=== PATIENT | female | born 1980 | race Caucasian/White ===

== ENCOUNTER 2018-10-27 07:42 | Emergency (ER) | payer MEDICAID, SELFPAY ==
[2018-09-13 09:50] VITALS: BMI 22.3
[2018-10-27 07:43] VITALS: BP 117/70; PULSE 86; RESP 14; TEMP 37.1; O2SAT 100; BMI 23.1
--- NOTE | 2018-10-27 08:14 | ED.DCSUM_ITS ---
- ER Visit Summary Date of Service: 10/27/18 Chief Complaint: Fatigue History of Present Illness: The patient is a 38 F reports a one-week history of generalized weakness and fatigue. He states symptoms been worse over the past 2 days. Her son had positive mono titers and patient would like to be checked for mono. She also states that she was seen by Dr. Paige a month ago to establish care and never had a blood work drawn that was requested. She is wondering if she can have that done today as well. Patient denies fever or chills. She states she has minimal body aches. No nausea, vomiting, or diarrhea. Physical Examination: Vital signs unremarkable. Patient sitting upright in bed no acute distress. Head and neck examination was TMs to be clear bilaterally. Posterior pharynx exam is normal. Heart is regular rate and rhythm. Lung sounds are clear. Abdomen is soft and nontender. Neuro exam reveals no focal deficits. Test Results: CBC and chemistry studies are unremarkable. Urinalysis normal. test negative. Monospot and TSH are normal. Emergency Department Course and Treatment: Patient was given IV fluids. Test results were discussed with her. Patient's Monospot and eosinophil count were both unremarkable. My suspicion for acute mono is very low, however she may have a another virus giving her the generalized fatigue that she is feeling. She understands this. Treatment Plan: [] Disposition: Discharge Impression: Fatigue This note was generated with Smaile[employer] dictation software. It may contain incorrect words, spelling, and punctuation that were not noted in review of the chart prior to signing ED Disposition - Plan for ED Patient: Disposition: Home or Assisted Living Instructions: ED Weakness [facility] [place] Referrals: Rosetta Rebollar MD [Primary Care Provider] - 1 Week if not improving
[2018-10-27] MEDS: 0.9% Normal Saline 1,000 ML 150 ML IV (08:17)
[2018-10-27 08:24] LABS: Bacteria 0 SEEN /hpf (None Seen); Mucous, Urine 0 SEEN /hpf (<or=2+); Red Blood Cells-Urine 0 SEEN /hpf (0-5)
[2018-10-27 08:33] LABS: Absolute Lymphocyte Count 1.46 X10^3/ul (0.83-4.51); Absolute Neutrophil Count 6.8 X10^3/uL (2.0-7.7); Basophil# 0.03 X10^3/uL; Basophil% 0.3 % (0-1); Eosinophil# 0.17 X10^3/uL; Eosinophils% 1.9 % (0-5); Hematocrit 38.2 % (37-47); Lymphocyte # 1.46 X10^3/ul (4.0); Lymphocyte % 16.4 % (19-41); Mean Corpuscular Hgb 30.6 pg (27.0-32.0); Mean Corpuscular Volume 89.9 fL (81-99); Mean Platelet Vol. 9.5 fl (6.2-12.0); Monocyte# 0.38 X10^3/uL; Monocyte% 4.3 % (0-10); Neutrophil # 6.84 X10^3/uL (2.7-7.7); Platelet Count 347 K/mm3 (150-450); RBC Distribution Width CV 14.2 % (11.6-14.6); RBC Distribution Width SD 46.3 fl (35.1-43.9); Red Blood Count 4.25 M/mm3 (4.2-5.4); White Blood Count 8.9 K/mm3 (4.4-11.0)
[2018-10-27 08:40] LABS: POSITIVE COUNT NO; POSITIVE DIFFERENTIAL NO; POSITIVE MORPHOLOGY NO
[2018-10-27 08:41] LABS: Color, Urine Yellow (Yellow); Glucose, Dipstick Normal (Normal); Ketone-Dipstick Negative (Negative); Leukocyte Esterase-Dipstick Negative /ul (Negative); Nitrite-Dipstick Negative (Negative); Occult Blood-Urine Negative /ul (Negative); Protein-Dipstick Negative (Negative); Urine Bilirubin Dipstick Negative (Negative); Urine Clarity Clear (Clear); Urine Urobilinogen Normal (Normal)
[2018-10-27 08:42] LABS: Internal QC Validated? YES +Cl - CLEAR BKGD; Pregnancy, Serum, hCG Quali. NEGATIVE Negative
[2018-10-27 08:44] LABS: White Blood Cells 0-5 SEEN /hpf (0-5)
[2018-10-27 08:45] LABS: Squamous Epithelial Cells - UA 0-5 SEEN /hpf (5-10)
[2018-10-27 08:45] LABS: Internal QC Validated? YES +Cl - CLEAR BKGD; Monotest Negative (Negative)
[2018-10-27 08:54] LABS: Anion Gap 5 (5-15); BUN 8 mg/dL (7-18); BUN/Creat Ratio 11.8 RATIO (10-20); Calcium,Total 9.2 mg/dL (8.5-10.1); Chloride 108 mmol/L (98-107); Creatinine, Serum 0.68 mg/dL (0.55-1.02); EST Glomerular Filtration Rate 103 mL/min (>60); Est Glom Filt Rate - Afr Amer 124 mL/min (>60); Estimated Creatinine Clearance 95.91 ml/min; Glucose 89 mg/dL (74-106); Potassium 3.8 mmol/L (3.5-5.1); Sodium Level 142 mmol/L (136-145); Thyroid Stim Hormone (TSH) 0.86 uIU/mL (0.358-3.74)
== END 2018-10-27 09:09 | disposition home or self-care (01) ==
PROVIDERS: Emergency Provider Emergency Medicine; Family Provider Internal Medicine; PCP Internal Medicine
DX: R53.83 Other fatigue (principal); Z72.0 Tobacco use
CPT/HCPCS: 80048; 81001; 84443; 84703; 85025; 86308; 96360; 99283; J7030; A4216

== ENCOUNTER → 2018-11-22 | Outpatient (CLI) | payer MEDICAID, SELFPAY ==
[2018-11-20 08:17] VITALS: BMI 23.1
[2018-11-22 12:51] LABS: Absolute Lymphocyte Count 1.74 X10^3/ul (0.83-4.51); Absolute Neutrophil Count 5.8 X10^3/uL (2.0-7.7); Basophil# 0.03 X10^3/uL; Basophil% 0.4 % (0-1); Eosinophil# 0.16 X10^3/uL; Hematocrit 37.8 % (37-47); Hemoglobin 12.3 g/dl (12.0-15.0); Lymphocyte # 1.74 X10^3/ul (4.0); Lymphocyte % 21.4 % (19-41); Mean Corp Hgb Conc 32.5 g/gl (32-36); Mean Corpuscular Hgb 29.9 pg (27.0-32.0); Mean Corpuscular Volume 91.7 fL (81-99); Mean Platelet Vol. 9.7 fl (6.2-12.0); Monocyte# 0.43 X10^3/uL; Monocyte% 5.3 % (0-10); Neutrophil # 5.75 X10^3/uL (2.7-7.7); Neutrophil % 70.5 % (47-70); Platelet Count 413 K/mm3 (150-450); RBC Distribution Width CV 13.9 % (11.6-14.6); RBC Distribution Width SD 45.6 fl (35.1-43.9); Red Blood Count 4.12 M/mm3 (4.2-5.4); White Blood Count 8.1 K/mm3 (4.4-11.0)
[2018-11-22 12:54] LABS: POSITIVE COUNT NO; POSITIVE DIFFERENTIAL NO; POSITIVE MORPHOLOGY NO
[2018-11-22 13:10] LABS: Vitamin D,25 Hydroxy 21.8 ng/mL (29.95-100.01)
[2018-11-22 13:14] LABS: Anion Gap 7 (5-15); BUN 17 mg/dL (7-18); BUN/Creat Ratio 24.7 RATIO (10-20); Calcium,Total 9.2 mg/dL (8.5-10.1); Chloride 105 mmol/L (98-107); Cholesterol 168 mg/dL (200); Creatinine, Serum 0.69 mg/dL (0.55-1.02); EST Glomerular Filtration Rate 101 mL/min (>60); Est Glom Filt Rate - Afr Amer 122 mL/min (>60); Glucose 106 mg/dL (74-106); High Density Lipoprotein 79 mg/dL; Potassium 3.9 mmol/L (3.5-5.1); Sodium Level 139 mmol/L (136-145); Triglycerides 95 mg/dL; Very Low Density Lipoprotein 19 mg/dL (5-40)
== END | disposition home or self-care (01) ==
LOC: BIMLAB 10:01
PROVIDERS: Family Provider Internal Medicine; PCP Internal Medicine; Visit Provider Nurse Practitioner Family
DX: R00.2 Palpitations (principal); E55.9 Vitamin D deficiency, unspecified; Z72.0 Tobacco use
CPT/HCPCS: 36415; 80048; 80061; 82306; 85025

== ENCOUNTER 2021-12-23 21:09 | Emergency (ER) | payer MEDICAID, SELFPAY ==
[2021-12-23 21:10] VITALS: BP 126/80; PULSE 81; RESP 14; TEMP 36.6; O2SAT 100; BMI 25.9
--- NOTE | 2021-12-23 21:27 | EKG12_ITS ---
Test Reason : DYSRHYTHMIA Blood Pressure : / mmHG Vent. Rate : 073 BPM Atrial Rate : 073 BPM P-R Int : 156 ms QRS Dur : 082 ms QT Int : 394 ms P-R-T Axes : 077 081 058 degrees QTc Int : 434 ms Normal sinus rhythm Low voltage QRS Borderline ECG Confirmed by EMILY PANDA, ELIE ([id number]), advertising editor CLEMENCIA DEE ([id number]) on 12/27/2021 8:09:34 AM Referred By: WILLIAM Confirmed By:ELIE DIAZ MD
--- NOTE | 2021-12-23 21:27 | RAD_ITS ---
STUDY: X-RAY CHEST REASON FOR EXAM: Female, 41 years old. chest pain TECHNIQUE: Single AP portable upright view of the chest. 9:39 PM. COMPARISON: Previous chest radiograph of 05/18/2017. FINDINGS: The lungs are clear and expanded. There is no demonstrated pleural abnormality. Normal size heart. Normal mediastinum and leeann. Normal visualized pulmonary arteries. Normal visualized aortic arch and descending thoracic aorta. Normal visualized thoracic spine. Normal visualized ribs, clavicles, and shoulders. There is no demonstrated abnormality of the visualized soft tissue structures of the upper abdomen. RAD/Chest 1 View (Portable) IMPRESSION: No significant interval change. No acute cardiopulmonary disease process identified. Electronically Signed: Luis Rasheed MD at 22:02 EDT ,
--- NOTE | 2021-12-23 21:34 | ED.VIS.DYS ---
HPI History of Present Illness Chief Complaint: Shortness of Breath Narrative Narrative: Patient presents with left arm pain and she states that it is difficult to breathe out of her left side since 10:00 this morning. She denies any fevers or chills. No cough. No true chest pain. She denies any DVT or PE risk factors. She is concerned because she is a smoker. She denies any family history of early myocardial infarction. She does not have any leg swelling. No nausea, vomiting, or diaphoresis. She states that there is a deep ache in her left arm near her elbow. No injury. She is left-hand dominant. She does not take oral contraceptives. [facility] Medical History Drug abuse Lab test negative for COVID-19 virus Palpitations Home Medications vitamin B complex 1 ea PO DAILY 10/27/18 [History Last Taken Unknown] Allergy/AdvReac Type Severity Reaction Status Date / Time No Known Allergies Allergy Verified 12/23/21 21:10 Family History Mother Hypertension Arthritis Seizures Sleep apnea Bipolar 1 disorder Social History Smoking Status: Current every day smoker tobacco type: cigarettes Tobacco: How many years used: 15 alcohol intake: never substance use type: former substance user Date of last use: 07/02/2012 and opiates what type of physical activity do you participate in: none ROS ROS ED ROS Narrative Constitutional: No fever, no chills. HEENT: No sore throat. No neck pain. No loss of vision. No rhinorrhea. Cardiovascular: No chest pain. No palpitations. No pedal edema. Respiratory: No cough, intermittent shortness of breath out of left side. Abdominal: No abdominal pain. No nausea. No vomiting. Genitourinary: No dysuria. No hematuria. Musculoskeletal: Left arm pain/deep ache no arthralgias. Neurologic: No headaches. No dizziness. No lightheadedness. Skin: No rash. No change in color. Psychiatric: No depression. No anxiety. EXAM Physical Exam Narrative Exam Narrative: Afebrile. Vital signs noted. HEENT: Normocephalic. Atraumatic. PERRL, EOMI. Neck soft and supple. No point tenderness or step off. Cardiovascular: Regular rate and rhythm. No murmurs, rubs, or gallops appreciated. Respiratory: No tachypnea. Lungs clear to auscultation bilaterally. Gastrointestinal: Abdomen soft, nontender, with normoactive bowel sounds. No rebound or guarding. Neurological: Awake. Alert. Nonfocal, nonlateralizing. Skin: No rash. Normal color. No pallor. Musculoskeletal: No pedal edema. Full range of motion extremities. No noted swelling of left elbow or tenderness to palpation. Const Vital Signs: 12/23/21 21:10 12/23/21 21:41 12/23/21 21:50 Temperature 98 F Temperature Source Temporal Pulse Rate 81 Respiratory Rate 14 Respiratory Effort Normal Respiratory Depth Normal Blood Pressure 126/80 H Blood Pressure Mean 95 Pulse Ox 100 99 Oxygen Delivery Method Room Air Room Air Room Air 12/23/21 21:52 Temperature Temperature Source Pulse Rate 73 Respiratory Rate 16 Respiratory Effort Respiratory Depth Blood Pressure 105/81 H Blood Pressure Mean 89 Pulse Ox 98 Oxygen Delivery Method Room Air MDM MDM MDM Narrative Medical decision making narrative: Patient not having chest pain, she is concerned more about arm pain and the shortness of breath that she has been having. EKG demonstrates normal sinus rhythm at 73 bpm without ectopy or acute ST changes. No STEMI. Chest x-ray interpreted by myself shows no acute process, no pneumothorax, no evidence of pneumonia. Her CBC is grossly normal except for hemoglobin stable at 10.7, platelet count normal at 327. Electrolyte panel shows chloride 109 with a normal BUN and normal creatinine of 0.92. Glucose 93. Her 0-hour troponin is less than 3, high-sensitivity. Her pain is been longer than 6 hours and according to the guidelines, if the 0-hour is longer than 3 hours, she does not need a delta troponin as it is less than 3. At this point in time, I feel she can be discharged safely home with follow-up. Return instructions to the emergency department were reviewed. Disposition is discharged home in stable condition. Lab Data Attestation: I reviewed the patient's lab results. Labs: Laboratory Results - last 24 hr 12/23/21 12/23/21 21:40 21:40 WBC 7.6 RBC 3.62 L Hgb 10.7 L Hct 32.1 L MCV 88.7 MCH 29.6 MCHC 33.3 RDW Std Deviation 46.0 H RDW Coeff of Hernán 14.2 Plt Count 327 MPV 9.6 Immature Gran % (Auto) 0.300 Neut % (Auto) 58.2 Lymph % (Auto) 30.8 [place] % (Auto) 7.6 Eos % (Auto) 2.6 Baso % (Auto) 0.5 Absolute Neuts (auto) 4.4 Absolute Lymphs (auto) 2.34 Nucleated RBC % 0 Sodium 140 Potassium 3.7 Chloride 109 H Carbon Dioxide 24.0 Anion Gap 7 BUN 17 Creatinine 0.92 Estim Creat Clear Calc 63.00 Est GFR (MDRD) Af Amer 86 Est GFR (MDRD) Non-Af 71 BUN/Creatinine Ratio 18.5 Glucose 93 Calcium 9.4 Troponin I High Sens < 3 L Radiography Diagnostic Testing: Clinical Impression(s) from Imaging Studies Chest X-Ray 12/23/21 21:27 IMPRESSION: No significant interval change. No acute cardiopulmonary disease process identified. Electronically Signed: Luis Rasheed MD at 22:02 EDT , Discharge Plan Triage Chief Complaint: Shortness of Breath ED Provider: Kaiden Garcia Dx/Rx/DC Orders Clinical Impression: Shortness of breath, Left arm pain Instructions: ED Dyspnea, ED Pain, Acute, Uncertain Cause Prescriptions: No Action vitamin B complex 1 EACH capsule 1 ea PO DAILY Primary Care Provider: Rosetta Rebollar Referrals: Rosetta Rebollar MD [Primary Care Provider] - 3-5 Days if not improving Disposition Disposition: Home, Self Care
[2021-12-23] MEDS: Aspirin 81 MG TAB.CHEW 324 MG PO (21:35)
[2021-12-23 21:41] VITALS: O2SAT 99
[2021-12-23 21:45] LABS: Absolute Lymphocyte Count 2.34 X10^3/uL (0.83-4.51); Absolute Neutrophil Count 4.4 X10^3/uL (2.0-7.7); Basophil# 0.04 X10^3/uL; Basophil% 0.5 % (0-1); Eosinophils% 2.6 % (0-5); Hematocrit 32.1 % (37-47); Hemoglobin 10.7 g/dL (12.0-15.0); Lymphocyte # 2.34 X10^3/ul (0.83-4.51); Lymphocyte % 30.8 % (19-41); Mean Corp Hgb Conc 33.3 g/dL (32-36); Mean Corpuscular Hgb 29.6 pg (27.0-32.0); Mean Corpuscular Volume 88.7 fL (81-99); Mean Platelet Vol. 9.6 fl (6.2-12.0); Monocyte# 0.58 X10^3/uL; Monocyte% 7.6 % (0-10); NRBC Flagged by Analyzer 0 % (0-5); Neutrophil # 4.42 X10^3/uL (2.7-7.7); Neutrophil % 58.2 % (47-70); Platelet Count 327 K/mm3 (150-450); RBC Distribution Width CV 14.2 % (11.6-14.6); Red Blood Count 3.62 M/mm3 (4.2-5.4); White Blood Count 7.6 K/mm3 (4.4-11.0)
[2021-12-23 21:50] VITALS: O2SAT 99
[2021-12-23 21:52] VITALS: BP 105/81; PULSE 73; RESP 16; O2SAT 98
[2021-12-23 22:24] LABS: Anion Gap 7 (5-15); BUN 17 mg/dL (7-18); BUN/Creat Ratio 18.5 RATIO (10-20); Calcium,Total 9.4 mg/dL (8.5-10.1); Chloride 109 mmol/L (98-107); Creatinine, Serum 0.92 mg/dL (0.55-1.02); EST Glomerular Filtration Rate 71 mL/min (>60); Est Glom Filt Rate - Afr Amer 86 mL/min (>60); Glucose 93 mg/dL (74-106); Potassium 3.7 mmol/L (3.5-5.1); Sodium Level 140 mmol/L (136-145); Troponin-I HS (w/2H Reflex) < 3 pg/mL (3.0-54.0)
[2021-12-23 22:44] VITALS: BP 104/66; PULSE 71; RESP 17; O2SAT 99
[2021-12-23 23:42] LABS: Reflex Troponin-HS? (from REC) Y
== END 2021-12-23 22:45 | disposition home or self-care (01) ==
PROVIDERS: Emergency Provider Emergency Medicine; PCP Internal Medicine; Visit Provider Emergency Medicine
DX: R06.02 Shortness of breath (principal); M79.602 Pain in left arm; F17.210 Nicotine dependence, cigarettes, uncomplicated
CPT/HCPCS: 71045; 80048; 84484; 85025; 93005; 99285; A4216

== ENCOUNTER → 2022-05-18 | Outpatient (CLI) | payer MEDICAID, SELFPAY ==
[2022-05-18 09:37] LABS: Bacteria 0 SEEN /hpf (None Seen); Mucous, Urine 0 SEEN /hpf (<or=2+); Red Blood Cells-Urine 0 SEEN /hpf (0-5); Squamous Epithelial Cells - UA 0 SEEN /hpf (5-10); White Blood Cells 0 SEEN /hpf (0-5)
[2022-05-18 12:20] LABS: Absolute Lymphocyte Count 1.41 X10^3/uL (0.83-4.51); Absolute Neutrophil Count 3.8 X10^3/uL (2.0-7.7); Basophil# 0.03 X10^3/uL; Basophil% 0.5 % (0-1); Eosinophil# 0.08 X10^3/uL; Eosinophils% 1.4 % (0-5); Hematocrit 36.9 % (37-47); Hemoglobin 11.8 g/dL (12.0-15.0); Lymphocyte # 1.41 X10^3/ul (0.83-4.51); Lymphocyte % 24.6 % (19-41); Mean Corpuscular Hgb 28.8 pg (27.0-32.0); Mean Platelet Vol. 10.1 fl (6.2-12.0); Monocyte# 0.38 X10^3/uL; Monocyte% 6.6 % (0-10); NRBC Flagged by Analyzer 0 % (0-5); Neutrophil # 3.82 X10^3/uL (2.7-7.7); Neutrophil % 66.6 % (47-70); Platelet Count 436 K/mm3 (150-450); RBC Distribution Width CV 14.4 % (11.6-14.6); RBC Distribution Width SD 47.5 fl (35.1-43.9); White Blood Count 5.7 K/mm3 (4.4-11.0)
[2022-05-18 12:22] LABS: Color, Urine Straw (Yellow); Glucose, Dipstick Normal (Normal); Ketone-Dipstick Negative (Negative); Leukocyte Esterase-Dipstick Negative /ul (Negative); Nitrite-Dipstick Negative (Negative); Occult Blood-Urine Negative /ul (Negative); Protein-Dipstick Negative (Negative); Specific Gravity, Urine 1.005 (1.002-1.030); Urine Bilirubin Dipstick Negative (Negative); Urine Clarity Clear (Clear); Urine Urobilinogen Normal (Normal)
[2022-05-18 12:48] LABS: Vitamin B12 > 2000 pg/mL (211-911); Vitamin D,25 Hydroxy 45.8 ng/mL
[2022-05-18 12:52] LABS: ALB/GLOB Ratio 1.1 RATIO (0.9-2.4); AST(SGOT) 10 U/L (15-37); Alanine Aminotransfer ALT/SGPT 19 U/L (13-56); Albumin, Serum 3.9 g/dL (3.2-5.0); Alkaline Phosphatase 46 U/L (45-117); Anion Gap 5 (5-15); BUN 9 mg/dL (7-18); BUN/Creat Ratio 12.6 RATIO (10-20); Chloride 107 mmol/L (98-107); Creatinine, Serum 0.71 mg/dL (0.55-1.02); EST Glomerular Filtration Rate 95 mL/min (>60); Est Glom Filt Rate - Afr Amer 115 mL/min (>60); Ferritin 12 ng/mL (8-252); Globulin 3.7 g/dL (2.2-4.2); Glucose 59 mg/dL (74-106); Iron 111 ug/dL (50-170); Iron Binding Capacity,Total 422 ug/dL (250-450); PERCENT IRON SATURATION 26.3 % (15.0-55.0); Potassium 3.6 mmol/L (3.5-5.1); Protein, Total 7.6 g/dL (6.4-8.2); Sodium Level 139 mmol/L (136-145); T4 Free Direct 0.92 ng/dL (0.76-1.46); Thyroid Stim Hormone (TSH) 1.42 uIU/mL (0.358-3.74)
== END | disposition home or self-care (01) ==
LOC: BIMLAB 09:36
PROVIDERS: PCP Internal Medicine; Referring Provider Physician Assistant; Visit Provider Physician Assistant
DX: R53.83 Other fatigue (principal); R06.09 Other forms of dyspnea; R00.2 Palpitations
CPT/HCPCS: 36415; 80053; 81001; 82306; 82607; 82728; 83540; 83550; 84439; 84443; 85025

== ENCOUNTER → 2022-08-15 | Outpatient (CLI) | payer MEDICAID, SELFPAY ==
[2022-08-19 11:46] LABS: HPV APTIMA, High Risk Negative (Negative)
== END | disposition home or self-care (01) ==
PROVIDERS: PCP Internal Medicine; Visit Provider Registered Nurse
DX: Z12.4 Encounter for screening for malignant neoplasm of cervix (principal)
CPT/HCPCS: 87624; 88175; G0145

== ENCOUNTER → 2022-09-06 | Outpatient (CLI) | payer MEDICAID, SELFPAY ==
--- NOTE | 2022-09-06 08:16 | BI_ITS ---
MAMMOGRAPHY - BILATERAL SCREENING REASON FOR EXAM: Female, 42 years old. Routine annual screening examination. PERTINENT HISTORY: Non-contributory. Remote right breast biopsy. TECHNIQUE: Digital bilateral breast angelica (3D mammographic acquisition) in the CC and MLO projections. 2-D mediolateral oblique (MLO) and craniocaudad (CC) views of both breasts were obtained. CAD: Full Field Digital Mammography with Computer Added Detection was performed. COMPARISON: None. Baseline examination. FINDINGS: Breast Composition: The breasts are extremely dense, which lowers the sensitivity of mammography. There are no dominant masses or suspicious calcifications. Small benign-appearing bilateral axillary. No other significant abnormalities are identified. BI/SCRN MAMM (CAD)W/ANGELICA BILAT IMPRESSION: Negative screening mammogram. Yearly followup mammogram recommended. (A) ASSESSMENT CATEGORY: BIRADS Category 2: Benign. A letter regarding these results will be sent to the patient by the facility within 30 days. Approximately 10% of breast cancers are not detected by mammography. A normal mammogram should not delay biopsy of a clinically suspicious abnormality. [id number] Electronically Signed: Evan Alex MD at 12:41 EST ,
== END | disposition home or self-care (01) ==
LOC: OPBI 08:15
PROVIDERS: PCP Internal Medicine; Visit Provider Registered Nurse
DX: Z12.31 Encounter for screening mammogram for malignant neoplasm of breast (principal)
CPT/HCPCS: 77063; 77067

== ENCOUNTER → 2023-03-01 | Outpatient (CLI) | payer MEDICAID, SELFPAY ==
--- NOTE | 2023-03-01 11:50 | RAD_ITS ---
STUDY: X-RAY - PELVIS AND RIGHT HIP REASON FOR EXAM: Female, 42 years old. Right Hip Pain TECHNIQUE: 3 views of the pelvis and hip. COMPARISON: None. FINDINGS: There is a non-specific bowel gas pattern. Normal visualized soft tissue structures. Normal bilateral iliac wings, sacroiliac joints and visualized sacrum. Normal bilateral superior and inferior pubic rami. Normal pubic symphysis. Normal bilateral ischial tuberosities. Normal visualized femoral head. Normal acetabulum. Normal hip joint. RAD/HIP, UNI W/ Pelvis 2-3 Views IMPRESSION: Normal x-ray examination of the pelvis and hip. Electronically Signed: Geremias Hinojosa MD at 16:31 EDT ,
== END | disposition home or self-care (01) ==
PROVIDERS: PCP Internal Medicine; Referring Provider Internal Medicine; Visit Provider Internal Medicine
DX: M25.551 Pain in right hip (principal)
CPT/HCPCS: 73502

== ENCOUNTER 2023-05-11 08:00 | Outpatient (RCR) | payer MEDICAID, SELFPAY ==
--- NOTE | 2023-04-17 09:20 | HP.PTEVAL_ITS ---
Patient's Visit Information Visit Information Visit Information: MARGOT MUHAMMAD is a 42 year old F referred to Physical Therapy by Dr. Austen Alamo MD with a diagnosis of R hip pain and snapping hip. Date of Evaluation: 04/17/23 Physical Therapist: FARZANA Asher Visit Plan Frequency: 2x /Week Duration: 2 Months Plan: 2X/ week for 8 weeks for progressive centralization using extension shaye nciple and then progress to neutral spine core stability and hip stability, gait training, body mechanics with HEP HEP: prone lying to BOBBI to Prone press ups Subjective Subjective: She has a lot of back and R hip pain. She feels that her it is her SI but Dr said no. Some days are good but most are bad. She has trouble with sharp turns, bending fw she feels that she can not hold her weight. She can pinpoint her R SI area pain. Sometimes stepping on her R leg makes it hurt more and sit to stand makes it hurt. She has to lay down with her knees bent until things relax. On bad days turning in bed is hard. She has no N&T. She has no leg weakness. She has no loss of bowl or bladder. She has been better the last few days ( has held fire hydrant and seated hip flexor). She has been looking online in desperation. She wants to fix it. There was no injury but a few years ago it hurt to lay in bed and had to have a pillow inbetween her knees. Worse the last 8 years. She has 3 kids and youngest is 12. Her L hip pops but it is her R side that bothers her. Pain back pain: Pain Intensity (Out of 10): 2 Objective Objective: Gait: Pt walks with decrease stance time on the R LE and decreased R hip ext with wider AMY Trunk AROM: flex 75% (HS pull), SB B25%m Rot L 10, R 50%, Ext 50% LE MMT: B hip flex 11.8 R knee ext 21.3 and L 16.9 R knee flex 4.5 and L 5.6 R hip abd 12.3 and L 4.5 R hip ext 3.3 and L hip ext 4.7 Tighter R piriformis compared to the L with some groin pain Patella DTR's: 2+/3 B Pt is able to walk on heels and toes but it appears that it is harder to heel walk on the R side Prone lying increase pulling across LB... Prone to BOBBI X 10 (super hard at first and then it got easier.....the pulling is better)... Prone press ups X 10 ( no pain but weird cause not used to that position). completed a second set of 10 and felt good as she was afraid to move in that position. Balance/Special Test Scores Lower Extremity Functional Score: 45 Goals Goal 1:: I HEP (core stabiity) Goal Time Frame: 6-8 Weeks Goal 2:: Increase walking stride with increase hip ext and equal weight B Goal Time Frame: 6-8 Weeks Goal 3:: Increase trunk AROM (at time of the eval: Trunk AROM: flex 75% (HS pull), SB B25%m Rot L 10, R 50%, Ext 50%). Goal Time Frame: 6-8 Weeks Goal 4:: Increase LE strength (at the time of the eval: B hip flex 11.8 R knee ext 21.3 and L 16.9 R knee flex 4.5 and L 5.6 R hip abd 12.3 and L 4.5 R hip ext 3.3 and L hip ext 4.7). Goal Time Frame: 6-8 Weeks Goal 5:: Be able to sit to stand or roll over in bed with 50% less back pain Goal Time Frame: 6-8 Weeks Rehabilitation Potential Rehabilitation Potential: Good Anticipated Interventions Patient/Client Instruction: Educate patient on: Condition and Plan of Care For the Purpose of:: To decrease pain, To increase ROM, To improve nutrient delivery to tissue, To improve muscle performance and motor function, To improve ability to perform ADL's, To increase tolerance to activity/condition/position, To improve performance and independence with ADL's, To decrease level of supervision to perform tasks, To improve ability of physical actions for home/community/work/leisure, To improve gait and locomotor functions, To improve health of tissue, To decrease soft tissue restriction and To increase flexibility/ROM Therapeutic Exercise to Include: Strength training, Postural training, Flexibilty training, Gait and locomotor training, Active ROM and Dynamic Lumbar Stabilization For the Purpose of:: To decrease pain, To improve nutrient delivery to tissue, To improve muscle performance and motor function, To improve ability to perform ADL's, To increase tolerance to activity/condition/position, To improve performance and independence with ADL's, To decrease level of supervision to perform tasks, To improve ability of physical actions for home/community/work/leisure, To improve gait and locomotor functions and To improve health of tissue Functional Training to Include: Gait training For the Purpose of:: To improve gait and locomotor functions Text: Thank you for the opportunity to evaluate your patient. For Medicare and Medicare HMO plans, please review the plan of care and approve it. It will need to be FAXED BACK to us at [phone] for Medicare purposes. For Medicare only, by signing this I certify the plan of care. Please let me know if there are questions or concerns regarding this plan of care. Physician Signature: Date:
--- NOTE | 2023-07-03 07:32 | HP.PT.NRP(2) ---
Patient Information Patient Information: MARGOT MUHAMMAD was seen in my office for initial evaluation on . The following Plan of Care was established for this patient: Last Seen Last Seen: This patient was last seen in our office . Pertinent comments regarding their Physical therapy will appear below: At this point I will be discontinuing this patient from physical therapy. I would be happy to see this patient again in the future if found appropriate by the physician. Thank you! Manasa Mary, MPT
== END 2023-05-11 19:00 | disposition home or self-care (01) ==
LOC: PT 08:00
PROVIDERS: PCP Internal Medicine; Referring Provider Orthopaedic Surgery Sports Medicine; Visit Provider Orthopaedic Surgery Sports Medicine
DX: M25.852 Other specified joint disorders, left hip (principal); M25.551 Pain in right hip
CPT/HCPCS: 97110; 97161

== ENCOUNTER → 2023-05-30 | Outpatient (CLI) | payer MEDICAID, SELFPAY ==
[2023-05-30 12:48] LABS: Erythrocyte Sedimentation Rate 1 mm/hr (0-30)
[2023-05-30 13:33] LABS: CRP < 2.90 mg/L (0.0-3.0); Rheumatoid Factor < 10.0 IU/mL (<15)
[2023-05-31 13:07] LABS: CCP IgG Antibodies 1 units (0-19)
[2023-05-31 14:09] LABS: ANTINUCLEAR ANTIBODIES DIRECT Negative (Negative)
== END | disposition home or self-care (01) ==
LOC: BIMLAB 10:49
PROVIDERS: PCP Internal Medicine; Referring Provider Internal Medicine; Visit Provider Internal Medicine
DX: M19.90 Unspecified osteoarthritis, unspecified site (principal)
CPT/HCPCS: 36415; 85652; 86038; 86140; 86200; 86225; 86235; 86431

== ENCOUNTER → 2023-12-17 | Outpatient (CLI) | payer SELFPAY ==
[2023-12-17 12:51] LABS: Absolute Lymphocyte Count 1.62 X10^3/uL (0.83-4.51); Absolute Neutrophil Count 5.7 X10^3/uL (2.0-7.7); Basophil# 0.04 X10^3/uL; Basophil% 0.5 % (0-1); Eosinophil# 0.18 X10^3/uL; Eosinophils% 2.2 % (0-5); Hematocrit 38.3 % (37-47); Hemoglobin 12.6 g/dL (12.0-15.0); Lymphocyte # 1.62 X10^3/ul (0.83-4.51); Lymphocyte % 20.2 % (19-41); Mean Corp Hgb Conc 32.9 g/dL (32-36); Mean Corpuscular Hgb 30.5 pg (27.0-32.0); Mean Corpuscular Volume 92.7 fL (81-99); Mean Platelet Vol. 9.9 fl (6.2-12.0); Monocyte# 0.42 X10^3/uL; Monocyte% 5.2 % (0-10); NRBC Flagged by Analyzer 0 % (0-5); Neutrophil # 5.73 X10^3/uL (2.7-7.7); Neutrophil % 71.7 % (47-70); Platelet Count 451 K/mm3 (150-450); RBC Distribution Width CV 12.9 % (11.6-14.6); RBC Distribution Width SD 43.8 fl (35.1-43.9); Red Blood Count 4.13 M/mm3 (4.2-5.4)
[2023-12-17 13:13] LABS: ALB/GLOB Ratio 1.1 RATIO (0.9-2.4); AST(SGOT) 21 U/L (15-37); Alanine Aminotransfer ALT/SGPT 27 U/L (13-56); Albumin, Serum 3.9 g/dL (3.2-5.0); Alkaline Phosphatase 51 U/L (45-117); Anion Gap 4 (5-15); BUN 12 mg/dL (7-18); BUN/Creat Ratio 15.8 RATIO (10-20); Calcium,Total 9.4 mg/dL (8.5-10.1); Chloride 105 mmol/L (98-107); Cholesterol 191 mg/dL (200); Creatinine, Serum 0.76 mg/dL (0.55-1.02); EST Glomerular Filtration Rate 88 mL/min (>60); Est Glom Filt Rate - Afr Amer 106 mL/min (>60); Globulin 3.7 g/dL (2.2-4.2); Glucose 102 mg/dL (74-106); High Density Lipoprotein 67 mg/dL; Potassium 4.1 mmol/L (3.5-5.1); Protein, Total 7.6 g/dL (6.4-8.2); Sodium Level 136 mmol/L (136-145); Triglycerides 93 mg/dL; Very Low Density Lipoprotein 19 mg/dL (5-40)
== END | disposition home or self-care (01) ==
LOC: BIMLAB 10:57
PROVIDERS: PCP Internal Medicine; Visit Provider Internal Medicine
DX: Z00.00 Encounter for general adult medical examination without abnormal findings (principal)
CPT/HCPCS: 36415; 80053; 80061; 85025

== ENCOUNTER → 2024-08-05 | Outpatient (CLI) | payer OTHER, SELFPAY ==
[2024-08-05 15:19] LABS: Absolute Lymphocyte Count 1.82 X10^3/uL (0.83-4.51); Absolute Neutrophil Count 3.7 X10^3/uL (2.0-7.7); Basophil# 0.03 X10^3/uL; Basophil% 0.5 % (0-1); Eosinophil# 0.16 X10^3/uL; Eosinophils% 2.6 % (0-5); Hematocrit 34.9 % (37-47); Hemoglobin 11.4 g/dL (12.0-15.0); Lymphocyte # 1.82 X10^3/ul (0.83-4.51); Lymphocyte % 30.1 % (19-41); Mean Corp Hgb Conc 32.7 g/dL (32-36); Mean Corpuscular Hgb 29.9 pg (27.0-32.0); Mean Corpuscular Volume 91.6 fL (81-99); Monocyte# 0.33 X10^3/uL; Monocyte% 5.5 % (0-10); NRBC Flagged by Analyzer 0 % (0-5); Neutrophil # 3.69 X10^3/uL (2.7-7.7); Platelet Count 404 K/mm3 (150-450); RBC Distribution Width CV 13.2 % (11.6-14.6); RBC Distribution Width SD 44.8 fl (35.1-43.9); Red Blood Count 3.81 M/mm3 (4.2-5.4); White Blood Count 6.1 K/mm3 (4.4-11.0)
[2024-08-05 15:58] LABS: AST(SGOT) 19 U/L (15-37); Alanine Aminotransfer ALT/SGPT 23 U/L (13-56); Albumin, Serum 3.6 g/dL (3.2-5.0); Alkaline Phosphatase 54 U/L (45-117); Amylase 68 U/L (25-115); Anion Gap 3 (5-15); BUN 8 mg/dL (7-18); BUN/Creat Ratio 11.6 RATIO (10-20); Calcium,Total 9.1 mg/dL (8.5-10.1); Chloride 106 mmol/L (98-107); Creatinine, Serum 0.69 mg/dL (0.55-1.02); EST Glomerular Filtration Rate 98 mL/min (>60); Est Glom Filt Rate - Afr Amer 118 mL/min (>60); Globulin 3.6 g/dL (2.2-4.2); Glucose 70 mg/dL (74-106); Lipase 38 U/L (13-75); Potassium 3.7 mmol/L (3.5-5.1); Protein, Total 7.2 g/dL (6.4-8.2); Sodium Level 139 mmol/L (136-145)
== END | disposition home or self-care (01) ==
LOC: BIMLAB 11:51
PROVIDERS: PCP Internal Medicine; Visit Provider Physician Assistant
DX: R10.11 Right upper quadrant pain (principal)
CPT/HCPCS: 36415; 80053; 82150; 83690; 85025

== ENCOUNTER → 2024-08-14 | Outpatient (CLI) | payer OTHER, SELFPAY ==
--- NOTE | 2024-08-14 07:18 | US_ITS ---
PROCEDURE: GALLBLADDER REASON FOR EXAM: Right upper quadrant pain. COMPARISON: None FINDINGS: Liver: No evidence of hepatomegaly. The liver is measured at 15 cm in length. Diffusely echogenic hepatic parenchyma is noted, most likely due to diffuse fatty infiltration of the liver. No focal process is seen. No evidence of intrahepatic biliary ductal dilation. Portal vein hepatopetal flow is noted. Gallbladder: No stones, sludge, wall thickening or tenderness. The gallbladder is measured at 10 cm in length. No evidence of gallbladder wall thickening. No sonographic Nazario's sign was elicited. Common bile duct: Normal, with 5 mm diameter. Pancreas: Visualized portions are sonographically unremarkable. Visualized portions of the right kidney are unremarkable. The right kidney is measured at 9.9 x 4.7 x 3.7 cm. Cortical thickness is measured at 12 mm. No right upper quadrant ascites. US/Gallbladder IMPRESSION: 1. Diffusely echogenic hepatic parenchyma, most likely due to diffuse fatty inf iltration of the liver. No hepatomegaly is identified. 2. Somewhat enlarged gallbladder, but negative appearance, otherwise. No sonog raphic Nazario's sign was elicited. Reading Location: [address]
== END | disposition home or self-care (01) ==
LOC: US 07:17
PROVIDERS: PCP Internal Medicine; Referring Provider Physician Assistant; Visit Provider Physician Assistant
DX: R10.11 Right upper quadrant pain (principal)
CPT/HCPCS: 76705